=== PATIENT | male | born 1975 | race Caucasian/White ===

== ENCOUNTER 2024-04-15 09:29 | Emergency (ER) | payer MEDICAID ==
[~2024-04-15] VITALS: Ht 175.3 cm; Wt 91.0 kg
[2024-04-15 09:48] VITALS: O2SAT 98
[2024-04-15] MEDS ORDERED: OFLO5DRO4 RIGHT EAR (10:43)
[2024-04-15 10:54] VITALS: BP 129/80; PULSE 55; RESP 18; TEMP 36.78072; O2SAT 100
== END 2024-04-15 11:00 | disposition home or self-care (01) ==
LOC: ER 09:41
DX: H60.8X1 Other otitis externa, right ear (principal); Z98.890 Other specified postprocedural states; Z88.6 Allergy status to analgesic agent
CPT/HCPCS: 99283